=== PATIENT | female | born 1945 | race Caucasian/White ===

== ENCOUNTER 2016-12-20 10:30 | Outpatient (CLI) | payer MEDICARE, OTHER | END 2016-12-20 10:31 | disposition home or self-care (01) | DX: M81.0 Age-related osteoporosis without current pathological fracture (principal); N95.8 Other specified menopausal and perimenopausal disorders ==

== ENCOUNTER 2017-05-15 08:51 | Day surgery (SDC) | payer MEDICARE, OTHER ==
[~2017-05-15 08:51] MED LIST: BRIMONIDINE 0.2% OPHTH DROPS 5 ML ONE; TIMOLOL 0.5% OPHTH DROPS ONE
[2017-05-15] MEDS ORDERED: PROPARACAINE 0.5% OPHTH DROPS 15 ML ONE (08:59)
[2017-05-15] MEDS ORDERED: PHENYLEPHRINE 2.5% OPHTH 2 ML DROPS ONE (08:59)
[2017-05-15] MEDS ORDERED: CYCLOPENTOLATE 1% OPHTH DROPS 2 ML ONE (08:59)
[2017-05-15] MEDS ORDERED: KETOROLAC 0.45% OPHTH DROPS ONE (08:59)
[2017-05-15] MEDS ORDERED: PROPARACAINE 0.5% OPHTH DROPS 15 ML OPTH ONE ×2 (09:50→10:13)
[2017-05-15] MEDS ORDERED: CYCLOPENTOLATE 1% OPHTH DROPS 2 ML OPTH ONE (09:50)
[2017-05-15] MEDS ORDERED: PHENYLEPHRINE 2.5% OPHTH 2 ML DROPS OPTH ONE (09:50)
[2017-05-15] MEDS ORDERED: KETOROLAC 0.45% OPHTH DROPS OPTH ONE (09:50)
[2017-05-15] MEDS ORDERED: LACTATED RINGERS 500 ML IV ONE (09:58)
[2017-05-15] MEDS ORDERED: BRIMONIDINE 0.2% OPHTH DROPS 5 ML OPTH ONE (10:13)
[2017-05-15] MEDS ORDERED: EPINEPHrine 1 MG/ML AMP IVP ONE (10:13)
[2017-05-15] MEDS ORDERED: BSS/LIDOCAINE/EPINEPHRINE 1 ML SYRINGE IO ONE ×2 (10:13)
[2017-05-15] MEDS ORDERED: TIMOLOL 0.5% OPHTH DROPS OPTH ONE (10:13)
[2017-05-15] MEDS ORDERED: CHONDR SULF/HYALURONATE SYRINGE IO ONE (10:13)
[2017-05-15] MEDS ORDERED: TRIAMCIN/MOXIFLOX/VANCO 1 ML VIAL IO ONE ×2 (10:13)
[2017-05-15] MEDS ORDERED: MIDAZOLAM 2 MG/2 ML VIAL IVP ONE (10:15)
[2017-05-15 10:48] VITALS: BP 106/61
--- NOTE | 2017-05-15 10:54 | OPERATIVE REPORT ---
DATE OF SURGERY: 05/15/2017 00:00:00 PREOPERATIVE DIAGNOSIS: Visually significant cataract, right eye. This is her first cataract surgery. POSTOPERATIVE DIAGNOSIS: Visually significant cataract, right eye. This is her first cataract surgery. NAME OF PROCEDURE: Phacoemulsification posterior chamber intraocular lens implant, right eye. SURGEON: Ervin Osborne MD. ANESTHESIA: Monitored anesthesia care. COMPLICATIONS: None. OPERATIVE INDICATIONS: This is a 71-year-old woman with progressive vision loss in the right eye due to 2+ cortical and trace posterior subcapsular cataract. Best corrected visual acuity was 20/30 with glare to 20/125 in the right eye. Indications for surgery were overall decrease in vision, difficulty seeing words on a computer screen, difficulty reading, difficulty driving at night because of head lights from other vehicles and/or streetlights. She was consented at length concerning the risks and benefits of cataract surgery, after which she expressed a desire to proceed with surgery. OPERATIVE PROCEDURE: The patient was taken into OR #2 and placed under monitored anesthesia care. A surgical time-out was conducted confirming the correct patient, correct procedure and correct surgical site. She was given topical anesthesia and then prepped and draped in the usual sterile fashion. The eye was entered at the 12 and 9 o'clock positions. Intracameral Shugarcaine was injected into the anterior chamber followed by Viscoat. A continuous tear curvilinear capsulorrhexis was performed. The nucleus was hydrodissected and phacoemulsified. The cortex was evacuated using automated infusion aspiration. Provisc was injected into the capsular bag and a 19.5 diopter intraocular lens was inserted in the bag. I/A was used to evacuate the viscoelastic materials. Approximately 0.8 mL of a mixture triamcinolone, moxifloxacin, and vancomycin was injected subconjunctivally in the superior quadrant for infection and inflammation prophylaxis. The eye was inflated to physiologic pressure using balanced salt solution and found to be watertight. The patient was taken from the operating room in good condition and given postoperative instructions. JOB #: [id number] EXT JOB #:[id number] MTDD
== END 2017-05-15 08:52 | disposition home or self-care (01) ==
LOC: SDS 08:51
PROVIDERS: ATTEND Ophthalmology
PROC: 08RJ3JZ Replacement of Right Lens with Synthetic Substitute, Percutaneous Approach (ICD-10-PCS; principal; 2017-05-15 10:10)
DX: H25.811 Combined forms of age-related cataract, right eye (principal); J45.909 Unspecified asthma, uncomplicated; I10 Essential (primary) hypertension; E78.00 Pure hypercholesterolemia, unspecified; E03.9 Hypothyroidism, unspecified
CPT/HCPCS: 66984; A9270; J3490; V2632

== ENCOUNTER 2017-06-12 08:51 | Day surgery (SDC) | payer MEDICARE, OTHER ==
[~2017-06-12 08:51] MED LIST changes: +CYCLOPENTOLATE 1% OPHTH DROPS 2 ML ONE; +KETOROLAC 0.45% OPHTH DROPS ONE; +PHENYLEPHRINE 2.5% OPHTH 2 ML DROPS ONE; +PROPARACAINE 0.5% OPHTH DROPS 15 ML ONE
[2017-06-12] MEDS ORDERED: KETOROLAC 0.45% OPHTH DROPS OPTH ONE (09:35)
[2017-06-12] MEDS ORDERED: CYCLOPENTOLATE 1% OPHTH DROPS 2 ML OPTH ONE (09:35)
[2017-06-12] MEDS ORDERED: PHENYLEPHRINE 2.5% OPHTH 2 ML DROPS OPTH ONE (09:35)
[2017-06-12] MEDS ORDERED: PROPARACAINE 0.5% OPHTH DROPS 15 ML OPTH ONE ×2 (09:35→10:26)
[2017-06-12] MEDS ORDERED: LACTATED RINGERS 500 ML IV ONE (09:46)
[2017-06-12] MEDS ORDERED: MIDAZOLAM 2 MG/2 ML VIAL IVP ONE (10:15)
[2017-06-12] MEDS ORDERED: EPINEPHrine 1 MG/ML AMP IVP ONE (10:26)
[2017-06-12] MEDS ORDERED: TIMOLOL 0.5% OPHTH DROPS OPTH ONE (10:26)
[2017-06-12] MEDS ORDERED: BRIMONIDINE 0.2% OPHTH DROPS 5 ML OPTH ONE (10:26)
[2017-06-12] MEDS ORDERED: CHONDR SULF/HYALURONATE SYRINGE IO ONE (10:26)
[2017-06-12] MEDS ORDERED: TRIAMCIN/MOXIFLOX/VANCO 1 ML VIAL IO ONE (10:27)
[2017-06-12] MEDS ORDERED: BSS/LIDOCAINE/EPINEPHRINE 1 ML SYRINGE IO ONE (10:27)
[2017-06-12 10:39] VITALS: BP 107/56
--- NOTE | 2017-06-12 11:26 | OPERATIVE REPORT ---
DATE OF SURGERY: 06/12/2017 00:00:00 PREOPERATIVE DIAGNOSIS: Visually significant cataract, left eye. Cataract surgery was performed on th e right eye 05/15/2017. POSTOPERATIVE DIAGNOSIS: Visually significant cataract, left eye. Cataract surgery was performed on t he right eye 05/15/2017. NAME OF PROCEDURE: Phacoemulsification posterior chamber intraocular lens implant, left eye. SURGEON: Ervin Osborne MD. ANESTHESIA: Monitored anesthesia care. COMPLICATIONS: None. OPERATIVE INDICATIONS: This is a 71-year-old woman with progressive vision loss in the left eye due t o 2+ cortical and trace posterior subcapsular cataract. Best corrected visual acuity was 20/25 with g lare to 20/60 in the left eye. Indications for surgery were overall decrease in vision, difficulty se eing words on a computer screen, difficulty reading, difficulty seeing words or game scores on TV, di fficulty driving at night because of lights, and difficulty with glare or bright lights in any situat ion. She was consented at length concerning the risks and benefits of cataract surgery, after which s he expressed a desire to proceed with surgery. OPERATIVE PROCEDURE: The patient was taken into OR #2 and placed under monitored anesthesia care. A s urgical time-out was conducted confirming the correct patient, correct procedure and correct surgical site. She was given topical anesthesia and then prepped and draped in the usual sterile fashion. The eye was entered at the 6- and 3 o'clock positions. Intracameral Shugarcaine was injected into the an terior chamber followed by Viscoat. A continuous tear curvilinear capsulorrhexis was performed. The n ucleus was hydrodissected and phacoemulsified. The cortex was evacuated using automated infusion aspi ration. Provisc was injected in the capsular bag and a 19.5 diopter intraocular lens was inserted int o the bag. Approximately 0.7 mL of a mixture of triamcinolone, moxifloxacin, and vancomycin was injec altagracia subconjunctivally in the superior quadrant for infection and inflammation prophylaxis. I/A was us ed to evacuate the viscoelastic materials. The eye was inflated to physiologic pressure using balance d salt solution and found to be watertight. The patient was taken from the operating room in good con dition, given postoperative instructions. JOB #: [id number] EXT JOB #:[id number]
== END 2017-06-12 08:52 | disposition home or self-care (01) ==
LOC: SDS 08:51
PROVIDERS: ATTEND Ophthalmology
PROC: 08RK3JZ Replacement of Left Lens with Synthetic Substitute, Percutaneous Approach (ICD-10-PCS; principal; 2017-06-12 10:00)
DX: H25.812 Combined forms of age-related cataract, left eye (principal); J45.909 Unspecified asthma, uncomplicated; I10 Essential (primary) hypertension; E03.9 Hypothyroidism, unspecified; E78.00 Pure hypercholesterolemia, unspecified
CPT/HCPCS: 66984; A9270; J3490; V2632

== ENCOUNTER 2020-05-17 10:02 | Outpatient (CLI) | payer MEDICARE, OTHER ==
[2020-05-17 16:04] LABS: BASOPHILS % (AUTO) 0.9 %; EOSINOPHILS # (AUTO) 0.1 10^3/uL (0.0-0.7); EOSINOPHILS % (AUTO) 2.1 %; HGB - HEMOGLOBIN 11.4 g/dL (12.0-16.0); LYMPHOCYTES % (AUTO) 20.6 %; MEAN CORPUSCULAR HEMOGLOBIN 34.8 pg (27.0-31.0); MEAN CORPUSCULAR HGB CONC 33.6 g/dL (32.0-36.0); MEAN CORPUSCULAR VOLUME 103.4 fL (81.0-99.0); MEAN PLATELET VOLUME 9.5 fL (7.9-10.8); MONOCYTES # (AUTO) 0.4 10^3/uL (0.0-1.0); MONOCYTES % (AUTO) 9.2 %; NEUTROPHILS # (AUTO) 3.1 10^3/uL (1.5-6.6); NEUTROPHILS % (AUTO) 66.6 %; PLT - PLATELET COUNT 300 10^3/uL (130-450); RED BLOOD COUNT 3.28 10^6/uL (4.20-5.40); RED CELL DISTRIBUTION WIDTH 12.2 % (12.0-15.0); WHITE BLOOD COUNT 4.7 x10^3/uL (4.8-10.8)
[2020-05-17 16:49] LABS: THYROID STIMULATING HORMONE 0.95 uIU/mL (0.34-5.60)
[2020-05-17 16:52] LABS: FREE T4 (FREE THYROXINE) 0.98 ng/dL (0.58-1.64)
[2020-05-17 16:53] LABS: FREE T3 2.65 pg/mL (2.5-3.9)
[2020-05-17 16:58] LABS: FERRITIN 50.3 ng/mL (11.0-306.8)
[2020-05-17 17:01] LABS: FOLATE 24.57 ng/mL (5.90 - >24.8)
[2020-05-17 17:04] LABS: % IRON SATURATION 24 % (20-50); ALBUMIN/GLOBULIN RATIO 1.2 (1.0-2.2); ALKALINE PHOSPHATASE 40 IU/L (42-121); ALT ALANINE AMINOTRANSFERASE 27 IU/L (10-60); AST ASPARTATE AMINOTRANSFERASE 29 IU/L (10-42); BILIRUBIN,TOTAL 0.5 mg/dL (0.2-1.0); BUN - BLOOD UREA NITROGEN 12 mg/dL (6-20); CALCIUM 8.7 mg/dL (8.5-10.3); CARBON DIOXIDE - CO2 30 mmol/L (21-32); CHLORIDE 97 mmol/L (101-111); CHOL/HDL RATIO 2.8 (<4.4); CHOLESTEROL 151 mg/dL; CREATININE 0.6 mg/dL (0.4-1.0); GLUCOSE 77 mg/dL (70-100); HDL CHOLESTEROL 53 mg/dL; IRON 70 ug/dL (28-170); LDL CHOLESTEROL,CALCULATED 87 mg/dL; LDL/HDL RATIO 1.6 (<4.4); SODIUM 129 mmol/L (135-145); TOTAL IRON BINDING CAPACITY 291 ug/dL (250-450); TOTAL PROTEIN 7.3 g/dL (6.7-8.2); TRANSFERRIN 208 mg/dL (192-382); VLDL CHOLESTEROL 11 mg/dL
== END 2020-05-17 10:03 | disposition home or self-care (01) ==
LOC: LAB.S 10:02
PROVIDERS: ATTEND Registered Nurse
DX: E78.5 Hyperlipidemia, unspecified (principal); K90.0 Celiac disease; E03.9 Hypothyroidism, unspecified; E55.9 Vitamin D deficiency, unspecified
CPT/HCPCS: 36415; 80053; 80061; 82306; 82607; 82728; 82746; 83540; 83721; 84439; 84443; 84466; 84481; 85025

== ENCOUNTER 2020-06-12 10:17 | Outpatient (CLI) | payer MEDICARE, OTHER ==
--- NOTE | 2020-06-13 06:47 | DEXA Report ---
PROCEDURE: Dexa Spine and/or Hip INDICATIONS: OSTEOPOROSIS TECHNIQUE: Dual energy x-ray absorptiometry (DXA) was performed on a [employer] System. Regions measur ed are the AP Spine, femoral neck, and if needed forearm. COMPARISON: 12/20/2016 FINDINGS: Lumbar Spine: Bone Mineral Density 0.892 g/cm/cm,T score -2.4, osteopenia, change from previous 2.4% Left Hip: Bone Mineral Density 0.770 g/cm/cm,T score -1.9, osteopenia, change from previous 0.4% Left Femoral Neck: Bone Mineral Density 0.730 g/cm/cm, T score -2.2, osteopenia (T score greater or equal to -1.0: NORMAL) (T score from -1.1 to -2.4: OSTEOPENIA) (T score less than or equal to -2.5 to: OSTEOPOROSIS) Impression: 1. Osteopenia elevates the patient's 10 year fracture risk. 2. No significant change in bone mineral density compared to the prior study. Patients with diagnosis of osteoporosis or osteopenia should have regular bone mineral density assess ment. For those eligible for Medicare, routine testing is allowed once every 2 years. Testing frequ ency can be increased for patients who have rapidly progressing disease or for those who are receivin g medical therapy to restore bone mass. Reviewed by: Cathryn Santos MD on 06/12/2020 12:34 PM PDT Approved by: Cathryn Santos MD on 06/12/2020 12:34 PM PDT Station ID: [id number]
== END 2020-06-12 10:18 | disposition home or self-care (01) ==
LOC: DI 10:17
PROVIDERS: ATTEND Registered Nurse
DX: M85.89 Other specified disorders of bone density and structure, multiple sites (principal)
CPT/HCPCS: 77080

== ENCOUNTER 2020-06-12 10:18 | Outpatient (CLI) | payer MEDICARE, OTHER ==
--- NOTE | 2020-06-13 08:45 | Mammography Report ---
BILATERAL DIGITAL SCREENING MAMMOGRAM 3D/2D: 06/12/2020 CLINICAL: Routine screening. Comparison is made to exams dated: 06/04/2016 mammogram, 02/08/2015 mammogram, 12/08/2013 mammogram, 12/02 mammogram, 08/12/2011 mammogram, and 04/18/2010 mammogram - [facility]. There are scattered fibroglandular elements in both breasts. No significant masses, calcifications, or other findings are seen in either breast. There has been no significant interval change. IMPRESSION: NEGATIVE There is no mammographic evidence of malignancy. A 1 year screening mammogram is recommended. This exam was interpreted at Station ID: [id number]. NOTE: For mammograms, a report in lay terms will be sent to the patient. Approximately 15% of breast malignancies will not be visualized mammographically. In the management of a palpable breast mass, a negative mammogram must not discourage biopsy of a clinically suspicious lesion. Electronically Signed By: Kavon carrasquillo/robb:06/12/2020 17:09:55 ACR BI-RADS Category 1: Negative 3341F PARENCHYMAL PATTERN: (A) - The breast(s) demonstrate(s) scattered fibroglandular densities. BI-RADS CATEGORY: (1) - 1 RECOMMENDATION: (ANNUAL) - Recommend routine annual screening mammography. [id number] 1 year screening LATERALITY: (B)
== END 2020-06-12 10:19 | disposition home or self-care (01) ==
LOC: DI 10:18
PROVIDERS: ATTEND Registered Nurse
DX: Z12.31 Encounter for screening mammogram for malignant neoplasm of breast (principal)
CPT/HCPCS: 77063; 77067